=== PATIENT | female | born 1945 | race Caucasian/White ===

== ENCOUNTER → 2023-04-25 09:31 | Outpatient (REF) | payer MEDICARE, OTHER, SELFPAY ==
[2023-04-25 12:57] LABS: % Basophils 0.5 % (0-2); % Eosinophils 1.1 % (0-6); % Immature Granulocytes 0.3 % (0-0.5); % Lymphocytes 23.4 % (20.5-51.1); % Monocytes 8.2 % (1.7-9.3); % Neutrophils 66.5 % (42.2-75.2); Absolute Eosinophils 0.1 10^3/uL (0-0.7); Absolute Lymphocytes 1.9 10^3/uL (1.2-3.4); Absolute Monocytes 0.7 10^3/uL (0.1-0.6); Absolute Neutrophils 5.3 10^3/uL (1.4-6.5); Hematocrit 45.7 % (37.0-47.0); Hemoglobin 14.8 g/dL (12.0-16.0); Mean Corp Hgb Conc. 32.4 g/dL (33.0-37.0); Mean Corpuscular Hgb 31.8 pg (27.0-31.0); Mean Corpuscular Volume 98.1 fL (81.0-99.0); Nucleated Red Blood Cells % 0 %; Platelet Count 215 10^3/uL (130-400); Red Blood Cell Count 4.66 10^6/uL (4.20-5.40); Red Cell Dist. Width 13.1 % (11.5-14.5); White Blood Cell Count 7.9 10^3/uL (4.8-10.8)
[2023-04-25 13:06] LABS: ALT (SGPT) 32 U/L (0-35); AST (SGOT) 31 U/L (14-36); Albumin 3.9 g/dl (3.5-5.0); Alkaline Phosphatase 73 U/L (38-126); Blood Urea Nitrogen 26 mg/dl (7-17); Calcium 9.6 mg/dl (8.4-10.2); Carbon Dioxide 29 mmol/L (22-30); Chloride 102 mmol/L (98-107); Glucose 86 mg/dl (70-99); Sodium 139 mmol/L (135-145); Total Bilirubin 0.7 mg/dl (0.2-1.3); Total Protein 6.4 g/dl (6.3-8.2); eGFR > 60.00
[2023-04-25 13:12] LABS: Potassium 4.3 mmol/L (3.5-5.1)
[2023-04-27 18:00] LABS: CA 27-29 11.6 U/mL (<=39.0)
== END ==
LOC: HWLAB 09:31
PROVIDERS: ATTENDING PHYSICIAN Internal Medicine Hematology & Oncology; FAMILY PHYSICIAN Family Medicine
DX: C50.411 Malignant neoplasm of upper-outer quadrant of right female breast (principal); Z51.89 Encounter for other specified aftercare; R11.2 Nausea with vomiting, unspecified
CPT/HCPCS: 36415; 80053; 85025; 86300

== ENCOUNTER → 2023-08-14 09:44 | Outpatient (REF) | payer MEDICARE, OTHER, SELFPAY ==
[2023-08-14 12:04] LABS: ALT (SGPT) 20 U/L (0-35); AST (SGOT) 28 U/L (14-36); Albumin 3.8 g/dl (3.5-5.0); Alkaline Phosphatase 66 U/L (38-126); Blood Urea Nitrogen 16 mg/dl (7-17); Calcium 9.3 mg/dl (8.4-10.2); Carbon Dioxide 31 mmol/L (22-30); Chloride 104 mmol/L (98-107); Glucose 95 mg/dl (70-99); HDL Cholesterol 59 mg/dl; LDL Cholesterol, Calculated 114 mg/dl; Potassium 4.3 mmol/L (3.5-5.1); Sodium 138 mmol/L (135-145); Total Bilirubin 0.8 mg/dl (0.2-1.3); Total Cholesterol 202 mg/dl (50-199); Total Protein 6.1 g/dl (6.3-8.2); Triglyceride 148 mg/dl (10-149); Very Low Density Lipoprotein 29 mg/dl (0-30); eGFR 57.31
[2023-08-14 12:07] LABS: Urine Albumin Negative (Neg - Trace); Urine Bilirubin Negative (Negative); Urine Character Clear (Clear); Urine Color Yellow; Urine Glucose Negative (Negative); Urine Ketone Negative (Negative); Urine Leukocyte Trace (Negative); Urine Nitrite Negative (Negative); Urine Occult Blood Negative (Negative); Urine Specific Gravity 1.005 (<1.030); Urine Urobilinogen Negative (Neg - 1+)
[2023-08-14 12:17] LABS: Free T4 1.53 ng/dl (0.78-2.19); Vitamin D, 25-OH*** 46.3 ng/mL (30-80)
[2023-08-14 12:30] LABS: TSH 1.89 uIU/ml (0.47-4.68)
[2023-08-14 12:43] LABS: Urine Red Blood Cell 0-2 /HPF (0-2)
== END ==
LOC: HWLAB 09:44
PROVIDERS: ATTENDING PHYSICIAN Family Medicine
DX: Z13.89 Encounter for screening for other disorder (principal); E03.9 Hypothyroidism, unspecified; E78.2 Mixed hyperlipidemia; M81.0 Age-related osteoporosis without current pathological fracture
CPT/HCPCS: 36415; 80053; 80061; 81003; 81015; 82306; 84439; 84443

== ENCOUNTER → 2023-08-21 12:51 | Outpatient (REF) | payer MEDICARE, OTHER, SELFPAY ==
[2023-08-21 14:55] LABS: % Basophils 0.8 % (0-2); % Eosinophils 1.9 % (0-6); % Immature Granulocytes 0.3 % (0-0.5); % Lymphocytes 22.5 % (20.5-51.1); % Monocytes 7.4 % (1.7-9.3); % Neutrophils 67.1 % (42.2-75.2); Absolute Basophils 0.1 10^3/uL (0-0.2); Absolute Eosinophils 0.2 10^3/uL (0-0.7); Absolute Lymphocytes 1.8 10^3/uL (1.2-3.4); Absolute Monocytes 0.6 10^3/uL (0.1-0.6); Absolute Neutrophils 5.3 10^3/uL (1.4-6.5); Hematocrit 44.3 % (37.0-47.0); Hemoglobin 14.6 g/dL (12.0-16.0); Mean Corpuscular Hgb 31.9 pg (27.0-31.0); Mean Corpuscular Volume 96.9 fL (81.0-99.0); Mean Platelet Volume 10.5 fL (7.4-10.4); Nucleated Red Blood Cells % 0 %; Platelet Count 229 10^3/uL (130-400); Red Blood Cell Count 4.57 10^6/uL (4.20-5.40); Red Cell Dist. Width 13.1 % (11.5-14.5); White Blood Cell Count 7.9 10^3/uL (4.8-10.8)
[2023-08-21 15:14] LABS: Blood Urea Nitrogen 14 mg/dl (7-17); Calcium 9.9 mg/dl (8.4-10.2); Carbon Dioxide 26 mmol/L (22-30); Chloride 105 mmol/L (98-107); Glucose 90 mg/dl (70-99); Potassium 4.5 mmol/L (3.5-5.1); Sodium 139 mmol/L (135-145); eGFR 51.11
[2023-08-21 15:30] LABS: APTT 26.5 Sec (23.4-35.0); INR 0.95; PT 12.5 Sec (11.4-14.6)
[2023-08-22 11:04] LABS: Glycohemoglobin (HgbA1c) 5.4 % (4.0-5.6)
== END ==
LOC: HWLAB 12:51
PROVIDERS: ATTENDING PHYSICIAN Orthopaedic Surgery Sports Medicine; FAMILY PHYSICIAN Family Medicine
DX: M17.11 Unilateral primary osteoarthritis, right knee (principal); Z01.818 Encounter for other preprocedural examination; R79.1 Abnormal coagulation profile; R73.09 Other abnormal glucose
CPT/HCPCS: 36415; 80048; 83036; 85025; 85610; 85730

== ENCOUNTER → 2023-11-19 07:12 | Outpatient (REF) | payer MEDICARE, OTHER, SELFPAY ==
[2023-11-19 09:53] LABS: % Basophils 0.5 % (0-2); % Eosinophils 2.2 % (0-6); % Immature Granulocytes 0.3 % (0-0.5); % Lymphocytes 24.4 % (20.5-51.1); % Monocytes 8.3 % (1.7-9.3); % Neutrophils 64.3 % (42.2-75.2); Absolute Eosinophils 0.2 10^3/uL (0-0.7); Absolute Lymphocytes 1.9 10^3/uL (1.2-3.4); Absolute Monocytes 0.7 10^3/uL (0.1-0.6); Hematocrit 43.6 % (37.0-47.0); Hemoglobin 13.9 g/dL (12.0-16.0); Mean Corp Hgb Conc. 31.9 g/dL (33.0-37.0); Mean Corpuscular Hgb 31.3 pg (27.0-31.0); Mean Corpuscular Volume 98.2 fL (81.0-99.0); Mean Platelet Volume 10.6 fL (7.4-10.4); Nucleated Red Blood Cells % 0 %; Platelet Count 254 10^3/uL (130-400); Red Blood Cell Count 4.44 10^6/uL (4.20-5.40); Red Cell Dist. Width 12.9 % (11.5-14.5); White Blood Cell Count 7.8 10^3/uL (4.8-10.8)
[2023-11-19 09:55] LABS: ALT (SGPT) 16 U/L (0-35); AST (SGOT) 22 U/L (14-36); Albumin 3.8 g/dl (3.5-5.0); Alkaline Phosphatase 71 U/L (38-126); Blood Urea Nitrogen 17 mg/dl (7-17); Calcium 9.3 mg/dl (8.4-10.2); Carbon Dioxide 29 mmol/L (22-30); Chloride 104 mmol/L (98-107); Glucose 99 mg/dl (70-99); Potassium 4.2 mmol/L (3.5-5.1); Sodium 143 mmol/L (135-145); Total Bilirubin 0.4 mg/dl (0.2-1.3); Total Protein 6.1 g/dl (6.3-8.2); eGFR 56.95
[2023-11-20 16:37] LABS: CA 27-29 18.2 U/mL (<=39.0)
== END ==
LOC: HWLAB 07:12
PROVIDERS: ATTENDING PHYSICIAN Internal Medicine Hematology & Oncology; FAMILY PHYSICIAN Family Medicine
DX: C50.411 Malignant neoplasm of upper-outer quadrant of right female breast (principal); Z51.89 Encounter for other specified aftercare; R11.2 Nausea with vomiting, unspecified
CPT/HCPCS: 36415; 80053; 85025; 86300

== ENCOUNTER → 2023-11-26 06:48 | Outpatient (REF) | payer MEDICARE, OTHER, SELFPAY ==
[2023-11-26 09:28] LABS: % Basophils 0.4 % (0-2); % Eosinophils 2.2 % (0-6); % Immature Granulocytes 0.3 % (0-0.5); % Monocytes 7.6 % (1.7-9.3); % Neutrophils 59.5 % (42.2-75.2); Absolute Eosinophils 0.2 10^3/uL (0-0.7); Absolute Lymphocytes 2.2 10^3/uL (1.2-3.4); Absolute Monocytes 0.6 10^3/uL (0.1-0.6); Absolute Neutrophils 4.4 10^3/uL (1.4-6.5); Hematocrit 42.7 % (37.0-47.0); Hemoglobin 13.8 g/dL (12.0-16.0); Mean Corp Hgb Conc. 32.3 g/dL (33.0-37.0); Mean Corpuscular Hgb 31.2 pg (27.0-31.0); Mean Corpuscular Volume 96.4 fL (81.0-99.0); Mean Platelet Volume 10.4 fL (7.4-10.4); Nucleated Red Blood Cells % 0 %; Platelet Count 224 10^3/uL (130-400); Red Blood Cell Count 4.43 10^6/uL (4.20-5.40); Red Cell Dist. Width 12.8 % (11.5-14.5); White Blood Cell Count 7.3 10^3/uL (4.8-10.8)
[2023-11-26 09:31] LABS: Urine Albumin Trace (Neg - Trace); Urine Bilirubin Negative (Negative); Urine Character Very Cloudy (Clear); Urine Color Yellow; Urine Glucose Negative (Negative); Urine Ketone Negative (Negative); Urine Leukocyte 2+ (Negative); Urine Nitrite Negative (Negative); Urine Occult Blood Trace (Negative); Urine Urobilinogen Negative (Neg - 1+)
[2023-11-26 09:45] LABS: ALT (SGPT) 15 U/L (0-35); AST (SGOT) 23 U/L (14-36); Albumin 3.7 g/dl (3.5-5.0); Alkaline Phosphatase 71 U/L (38-126); Blood Urea Nitrogen 17 mg/dl (7-17); Calcium 9.2 mg/dl (8.4-10.2); Carbon Dioxide 29 mmol/L (22-30); Chloride 106 mmol/L (98-107); Glucose 103 mg/dl (70-99); HDL Cholesterol 65 mg/dl; LDL Cholesterol, Calculated 102 mg/dl; Potassium 4.3 mmol/L (3.5-5.1); Sodium 143 mmol/L (135-145); Total Bilirubin 0.4 mg/dl (0.2-1.3); Total Cholesterol 206 mg/dl (50-199); Total Protein 6.1 g/dl (6.3-8.2); Triglyceride 196 mg/dl (10-149); Very Low Density Lipoprotein 39 mg/dl (0-30); eGFR 56.95
[2023-11-26 10:03] LABS: Urine Amorphous Seen; Urine Mucus Moderate; Urine Squamous Cell 0-2 /LPF (Few)
[2023-11-26 10:04] LABS: Free T4 1.31 ng/dl (0.78-2.19); Vitamin D, 25-OH*** 42.3 ng/mL (30-80)
[2023-11-26 10:04] LABS: Urine Red Blood Cell 0-2 /HPF (0-2)
[2023-11-26 10:17] LABS: TSH 2.85 uIU/ml (0.47-4.68)
== END ==
LOC: HWLAB 06:48
PROVIDERS: ATTENDING PHYSICIAN Family Medicine
DX: Z13.89 Encounter for screening for other disorder (principal); M81.0 Age-related osteoporosis without current pathological fracture; C50.411 Malignant neoplasm of upper-outer quadrant of right female breast; E78.2 Mixed hyperlipidemia; E03.9 Hypothyroidism, unspecified
CPT/HCPCS: 36415; 80053; 80061; 81003; 81015; 82306; 84439; 84443; 85025

== ENCOUNTER → 2024-05-28 08:24 | Outpatient (REF) | payer MEDICARE, OTHER, SELFPAY ==
[2024-05-28 09:39] LABS: % Basophils 0.4 % (0-2); % Eosinophils 2.6 % (0-6); % Immature Granulocytes 0.1 % (0-0.5); % Lymphocytes 27.3 % (20.5-51.1); % Monocytes 7.7 % (1.7-9.3); % Neutrophils 61.9 % (42.2-75.2); Absolute Eosinophils 0.2 10^3/uL (0-0.7); Absolute Monocytes 0.6 10^3/uL (0.1-0.6); Absolute Neutrophils 4.5 10^3/uL (1.4-6.5); Hematocrit 44.8 % (37.0-47.0); Hemoglobin 14.6 g/dL (12.0-16.0); Mean Corp Hgb Conc. 32.6 g/dL (33.0-37.0); Mean Corpuscular Hgb 31.9 pg (27.0-31.0); Mean Platelet Volume 10.9 fL (7.4-10.4); Nucleated Red Blood Cells % 0 %; Platelet Count 201 10^3/uL (130-400); Red Blood Cell Count 4.57 10^6/uL (4.20-5.40); Red Cell Dist. Width 12.7 % (11.5-14.5); White Blood Cell Count 7.2 10^3/uL (4.8-10.8)
[2024-05-28 11:10] LABS: ALT (SGPT) 19 U/L (0-35); AST (SGOT) 26 U/L (14-36); Albumin 3.6 g/dl (3.5-5.0); Alkaline Phosphatase 70 U/L (38-126); Blood Urea Nitrogen 18 mg/dl (7-17); Calcium 9.6 mg/dl (8.4-10.2); Carbon Dioxide 29 mmol/L (22-30); Chloride 106 mmol/L (98-107); Glucose 92 mg/dl (70-99); Potassium 4.3 mmol/L (3.5-5.1); Sodium 141 mmol/L (135-145); Total Bilirubin 0.7 mg/dl (0.2-1.3); eGFR > 60.00
[2024-05-30 04:44] LABS: CA 27-29 10.5 U/mL (<=39.0)
== END ==
LOC: HWLAB 08:24
PROVIDERS: ATTENDING PHYSICIAN Internal Medicine Hematology & Oncology; FAMILY PHYSICIAN Family Medicine
DX: C50.411 Malignant neoplasm of upper-outer quadrant of right female breast (principal); Z51.89 Encounter for other specified aftercare; R11.2 Nausea with vomiting, unspecified
CPT/HCPCS: 36415; 80053; 85025; 86300

== ENCOUNTER → 2024-08-20 08:54 | Outpatient (REF) | payer MEDICARE, OTHER, SELFPAY | LOC: RAD 08:54 | PROVIDERS: ATTENDING PHYSICIAN Family Medicine | DX: M81.0 Age-related osteoporosis without current pathological fracture (principal) | CPT/HCPCS: 77080 ==

== ENCOUNTER → 2024-11-03 10:49 | Outpatient (REF) | payer MEDICARE, OTHER, SELFPAY ==
[2024-11-03 17:05] LABS: ALT (SGPT) 19 U/L (0-35); AST (SGOT) 24 U/L (14-36); Albumin 3.9 g/dl (3.5-5.0); Alkaline Phosphatase 60 U/L (38-126); Blood Urea Nitrogen 20 mg/dl (7-17); Calcium 9.8 mg/dl (8.4-10.2); Carbon Dioxide 31 mmol/L (22-30); Chloride 105 mmol/L (98-107); Glucose 83 mg/dl (70-99); Potassium 4.4 mmol/L (3.5-5.1); Sodium 139 mmol/L (135-145); Total Protein 6.8 g/dl (6.3-8.2); eGFR > 60.00
[2024-11-03 17:16] LABS: Vitamin D, 25-OH*** 39.4 ng/mL (30-80)
== END ==
LOC: HWLAB 10:49
PROVIDERS: ATTENDING PHYSICIAN Internal Medicine Rheumatology; FAMILY PHYSICIAN Family Medicine
DX: E55.9 Vitamin D deficiency, unspecified (principal); M81.0 Age-related osteoporosis without current pathological fracture
CPT/HCPCS: 36415; 80053; 82306

== ENCOUNTER → 2024-11-24 09:07 | Outpatient (REF) | payer MEDICARE, OTHER, SELFPAY ==
[2024-11-24 11:59] LABS: Hematocrit 47.0 % (37.0-47.0); Hemoglobin 15.1 g/dL (12.0-16.0); Mean Corp Hgb Conc. 32.1 g/dL (33.0-37.0); Mean Corpuscular Volume 99.2 fL (81.0-99.0); Nucleated Red Blood Cells % 0 %; Platelet Count 207 10^3/uL (130-400); Red Cell Dist. Width 12.6 % (11.5-14.5)
[2024-11-24 12:22] LABS: HDL Cholesterol 62 mg/dl; LDL Cholesterol, Calculated 108 mg/dl; Urine Character Clear (Clear); Very Low Density Lipoprotein 32 mg/dl (0-30)
[2024-11-24 12:51] LABS: Urine Red Blood Cell 0-2 /HPF (0-2)
[2024-11-24 12:53] LABS: TSH 2.53 uIU/ml (0.47-4.68)
== END ==
LOC: HWLAB 09:07
PROVIDERS: ATTENDING PHYSICIAN Family Medicine
DX: E78.2 Mixed hyperlipidemia (principal); Z79.899 Other long term (current) drug therapy; Z85.3 Personal history of malignant neoplasm of breast; E03.9 Hypothyroidism, unspecified
CPT/HCPCS: 36415; 80061; 81003; 81015; 84439; 84443; 85025